=== PATIENT | female | born 1935 | race Caucasian/White ===

== ENCOUNTER → 2018-03-17 09:03 | Outpatient (CLI) | payer MEDICARE, OTHER, SELFPAY ==
[2018-03-17 15:41] LABS: ALB/GLOB Ratio 0.9 RATIO (0.9-2.4); AST(SGOT) 30 U/L (15-37); Alanine Aminotransfer ALT/SGPT 40 U/L (13-56); Albumin, Serum 3.5 g/dL (3.2-5.0); Alkaline Phosphatase 53 U/L (45-117); Anion Gap 12 (5-15); BUN 13 mg/dL (7-18); BUN/Creat Ratio 13.4 RATIO (10-20); Calcium,Total 8.5 mg/dL (8.5-10.1); Chloride 98 mmol/L (98-107); Creatinine, Serum 0.97 mg/dL (0.55-1.02); EST Glomerular Filtration Rate 59 mL/min (>60); Est Glom Filt Rate - Afr Amer 71 mL/min (>60); Globulin 4.1 g/dL (2.2-4.2); Glucose 178 mg/dL (74-106); Potassium 3.7 mmol/L (3.5-5.1); Protein, Total 7.6 g/dL (6.4-8.2); Sodium Level 133 mmol/L (136-145); Thyroid Stim Hormone (TSH) 0.95 uIU/mL (0.358-3.74)
[2018-03-17 15:48] LABS: Absolute Lymphocyte Count 1.14 X10^3/ul (0.83-4.51); Absolute Neutrophil Count 4.2 X10^3/uL (2.0-7.7); Basophil# 0.03 X10^3/uL; Basophil% 0.5 % (0-1); Eosinophil# 0.08 X10^3/uL; Eosinophils% 1.4 % (0-5); Lymphocyte # 1.14 X10^3/ul (4.0); Lymphocyte % 19.3 % (19-41); Mean Corp Hgb Conc 33.3 g/gl (32-36); Mean Corpuscular Hgb 30.8 pg (27.0-32.0); Mean Corpuscular Volume 92.3 fL (81-99); Mean Platelet Vol. 11.3 fl (6.2-12.0); Monocyte# 0.43 X10^3/uL; Monocyte% 7.3 % (0-10); Neutrophil # 4.23 X10^3/uL (2.7-7.7); Neutrophil % 71.3 % (47-70); Platelet Count 267 K/mm3 (150-450); RBC Distribution Width CV 14.2 % (11.6-14.6); RBC Distribution Width SD 47.1 fl (35.1-43.9); White Blood Count 5.9 K/mm3 (4.4-11.0)
[2018-03-17 15:53] LABS: POSITIVE COUNT NO; POSITIVE DIFFERENTIAL NO; POSITIVE MORPHOLOGY NO
[2018-03-18 08:40] LABS: Vitamin D,25 Hydroxy 31.9 ng/mL (29.95-100.01)
== END ==
PROVIDERS: Family Provider Family Medicine Geriatric Medicine; PCP Family Medicine Geriatric Medicine; Visit Provider Family Medicine Geriatric Medicine
DX: E11.9 Type 2 diabetes mellitus without complications (principal); E55.9 Vitamin D deficiency, unspecified; I10 Essential (primary) hypertension
CPT/HCPCS: 36415; 80053; 82306; 84443; 85025

== ENCOUNTER → 2018-04-08 10:23 | Outpatient (CLI) | payer MEDICARE, OTHER, SELFPAY | PROVIDERS: Family Provider Family Medicine Geriatric Medicine; PCP Family Medicine Geriatric Medicine; Visit Provider Nurse Practitioner Adult Health | DX: R10.30 Lower abdominal pain, unspecified (principal) | CPT/HCPCS: 87077; 87086; 87088; 87186 ==

== ENCOUNTER → 2018-06-28 12:10 | Outpatient (CLI) | payer MEDICARE, OTHER, SELFPAY | PROVIDERS: Family Provider Family Medicine Geriatric Medicine; PCP Family Medicine Geriatric Medicine; Visit Provider Nurse Practitioner | DX: Z12.31 Encounter for screening mammogram for malignant neoplasm of breast (principal); Z78.0 Asymptomatic menopausal state | CPT/HCPCS: 77063; 77067; 77080 ==

== ENCOUNTER → 2018-08-02 14:25 | Outpatient (CLI) | payer MEDICARE, OTHER, SELFPAY ==
[2018-08-08 11:05] LABS: Anti-Parietal Cell AB, QN < 1.0 Units (0.0-20.0); Intrinsic Factor Ab 0.9 AU/mL (0.0-1.1)
== END ==
PROVIDERS: Family Provider Nurse Practitioner; PCP Nurse Practitioner; Visit Provider Internal Medicine Gastroenterology
DX: E53.8 Deficiency of other specified B group vitamins (principal)
CPT/HCPCS: 36415; 83516; 86340

== ENCOUNTER → 2018-09-07 11:24 | Outpatient (CLI) | payer MEDICARE, OTHER, SELFPAY | PROVIDERS: Family Provider Nurse Practitioner; PCP Nurse Practitioner; Referring Provider Urology; Visit Provider Urology | DX: R30.0 Dysuria (principal) | CPT/HCPCS: 87077; 87086; 87088; 87186 ==

== ENCOUNTER → 2018-11-22 17:10 | Outpatient (CLI) | payer MEDICARE, OTHER, SELFPAY ==
[2018-11-22 17:10] VITALS: BMI 33.5
== END ==
PROVIDERS: Family Provider Nurse Practitioner; PCP Nurse Practitioner; Referring Provider Nurse Practitioner Adult Health; Visit Provider Nurse Practitioner Adult Health
DX: N30.90 Cystitis, unspecified without hematuria (principal); R35.1 Nocturia
CPT/HCPCS: 87086; 87088; 87186

== ENCOUNTER → 2019-01-03 12:55 | Outpatient (CLI) | payer MEDICARE, OTHER, SELFPAY ==
[2018-12-26 11:25] VITALS: BMI 31.1
--- NOTE | 2019-01-03 12:58 | CDU_ITS ---
Reason For Study: Carotid Bruit Rt. Velocities/BP Lt. Velocities/BP Prox CCA 83.3/11.7 cm/sec. Prox CCA 95.6/14.1 cm/sec. Mid CCA 101/18.8 cm/sec. Mid CCA 80.3/14.7 cm/sec. Dist CCA 95.6/15.2 cm/sec. Dist CCA 89.7/15.8 cm/sec. Prox ICA 54.6/15.7 cm/sec. Prox ICA 79.7/17 cm/sec. Mid ICA 98.5/27 cm/sec. Mid ICA 143/34.4 cm/sec. Dist ICA 119/25.9 cm/sec. Dist ICA 129/23.7 cm/sec. Rt. ICA/CCA = 1.24. Lt. ICA/CCA = 1.59. Prox ECA 100/9.38 cm/sec. Prox ECA 72.7 cm/sec. Rt. Vert. 70.9/11.7 cm/sec. Lt. Vert. 35/7.62 cm/sec. Right Extracranial There is intimal thickening but no significant atherosclerotic plaque noted in the right common carotid artery. There is heterogeneous, smooth atherosclerotic plaque noted in the right internal carotid artery. There is heterogeneous, smooth atherosclerotic plaque noted in the right external carotid artery. Antegrade flow is noted in the right vertebral artery. Left Extracranial There is intimal thickening but no significant atherosclerotic plaque noted in the left common carotid artery. There is homogeneous, smooth atherosclerotic plaque noted in the left internal carotid artery. There is intimal thickening but no significant atherosclerotic plaque noted in the left external carotid artery. The left external carotid artery is not well visualized. Antegrade flow is noted in the left vertebral artery. Procedure Carotid Duplex [id number]. Exam performed in department. Interpretation Summary Mild (<50%) stenosis right extracranial internal carotid. Moderate (50-69%) stenosis left extracranial internal carotid. Flow within the vertebral arteries is antegrade bilaterally. Ordering Physician: Unique Plunkett Referring Physician: Juanita Parisi Performed By: Tootie Muniz RVT and Student
== END ==
PROVIDERS: Family Provider Nurse Practitioner; PCP Nurse Practitioner; Referring Provider Physician Assistant Medical; Visit Provider Physician Assistant Medical
DX: R09.89 Other specified symptoms and signs involving the circulatory and respiratory systems (principal)
CPT/HCPCS: 93880

== ENCOUNTER → 2019-02-22 15:59 | Outpatient (CLI) | payer MEDICARE, OTHER, SELFPAY ==
[2018-12-26 11:25] VITALS: BMI 31.1
--- NOTE | 2019-02-22 16:04 | RAD_ITS ---
STUDY: X-RAY CHEST REASON FOR EXAM: Female, 83 years old. Preoperative evaluation. TECHNIQUE: PA and lateral views of the chest. COMPARISON: Comparison is made with prior study dated September 02, 2012. FINDINGS: Elevation of the anterior aspect of the right hemidiaphragm. Increased interstitial markings in both lungs suggestive of scarring. Normal size heart. Normal mediastinum and roberto. Normal visualized pulmonary arteries. There is atherosclerotic calcification of the aortic arch with tortuosity. There are diffuse degenerative changes of the visualized thoracic spine. Normal visualized ribs, clavicles, and shoulders. There is no demonstrated abnormality of the visualized soft tissue structures of the upper abdomen. RAD/Chest PA and Lateral IMPRESSION: Stable examination. Mild chronic interstitial scarring. Electronically Signed: Peter Shen, at 15:05 EDT , Service support ,
== END ==
PROVIDERS: Family Provider Nurse Practitioner; PCP Nurse Practitioner; Referring Provider Nurse Practitioner; Visit Provider Nurse Practitioner
DX: Z01.818 Encounter for other preprocedural examination (principal)
CPT/HCPCS: 71046

== ENCOUNTER → 2019-08-01 15:00 | Outpatient (CLI) | payer MEDICARE, OTHER, SELFPAY ==
[2019-06-07 13:50] VITALS: BMI 31.6
--- NOTE | 2019-08-01 15:02 | BI_ITS ---
MAMMOGRAPHY - BILATERAL SCREENING REASON FOR EXAM: Female, 84 years old. Routine annual screening examination. PERTINENT HISTORY: Non-contributory. TECHNIQUE: Digital bilateral breast renee (3D mammographic acquisition) in the CC and MLO projections. 2-D mediolateral oblique (MLO) and craniocaudad (CC) views of both breasts were obtained. CAD: Full Field Digital Mammography with Computer Added Detection was performed. COMPARISON: Comparison is made with prior examination dated June 28, 2018 and February 12, 2016. FINDINGS: Breast Composition: The breasts are almost entirely fatty. There are no dominant masses or suspicious calcifications. No other significant abnormalities are identified. There has been no significant change since the prior study. BI/SCREEN MAMM (CAD) W/RENEE BILAT IMPRESSION: Stable bilateral screening mammogram. Yearly follow-up mammogram recommended. (A) ASSESSMENT CATEGORY: BIRADS Category 1: Negative. A letter regarding these results will be sent to the patient by the facility within 30 days. Approximately 10% of breast cancers are not detected by mammography. A normal mammogram should not delay biopsy of a clinically suspicious abnormality. [id number] Electronically Signed: Peter Shen, at 8:46 EDT , Service support ,
== END ==
PROVIDERS: Family Provider Nurse Practitioner; PCP Nurse Practitioner; Referring Provider Nurse Practitioner; Visit Provider Nurse Practitioner
DX: Z12.31 Encounter for screening mammogram for malignant neoplasm of breast (principal)
CPT/HCPCS: 77063; 77067

== ENCOUNTER → 2019-11-14 10:31 | Outpatient (CLI) | payer MEDICARE, OTHER, SELFPAY ==
[2019-06-07 13:50] VITALS: BMI 31.6
[2019-11-09 14:30] LABS: BUN 10 mg/dL (7-18); Creatinine, Serum 0.89 mg/dL (0.55-1.02); EST Glomerular Filtration Rate 64 mL/min (>60); Est Glom Filt Rate - Afr Amer 78 mL/min (>60)
--- NOTE | 2019-11-14 10:35 | MRI_ITS ---
HISTORY:spinal stenosis, neurogenic claudication L3-4,L4-5,L5-S1; ddd; BACK PAIN, LEFT HIP PAIN spinal stenosis, neurogenic claudication L3-4,L4-5,L5-S1; ddd; BACK PAIN, LEFT HIP PAIN EXAMINATION: MR Spine Lumbar WO/W Contrast TECHNIQUE: Sagittal T1 and T2 and STIR and axial T1 and T2-weighted images were obtained. The patient was administered 16 cc of gentamicin intravenously and postcontrast fat-suppressed T1-weighted sagittal and axial images were obtained COMPARISON: August 04, 2012 FINDINGS: There is artifact it is seen to the lumbar spine on the postcontrast sagittal images that limits the study VERTEBRAE: Vertebral body heights are preserved. Normal vertebral bodies and posterior elements. VERTEBRAL ALIGNMENT: No spondylolisthesis. There is preservation of the normal lumbar lordosis. CORD: Normal position and signal intensity of the conus medullaris. At T11-12 there is again noted a subligamentous disc extrusion is unchanged from prior study. This is only seen on the sagittal view. This does efface the ventral thecal sac. T12-L1: No significant disc contour abnormality or canal stenosis. No neural foraminal narrowing. This is only seen on the sagittal view L1/L2: Normal disc height and morphology. Normal spinal canal, lateral recesses and neuroforamina. L2/L3: Minimal disc desiccation. Minimal annular bulge. No canal stenosis or neuroforaminal narrowing Minimal anterior spondylolisthesis unchanged from prior study. L3/L4: Slightly decreased hydration of the disc. Minimal annular bulge. No significant neural foraminal narrowing or canal stenosis L4/L5: Minimal retrolisthesis of L4 on L5 with posterior osteophytes and a diffuse annular bulge. Decreased disc height and hydration This extends into the bilateral neural foramina but greater on the left. There is moderate bilateral neuroforaminal narrowing. No significant nerve impingement. There is enhancement of the endplates seen at this level. L5/S1: Minimal retrolisthesis of L5 on S1 with posterior osteophytes and a diffuse annular bulge. Mild right and moderate left neuroforaminal narrowing. Effacement of the left L5 nerve root as it exits the foramen to the prior study. SOFT TISSUES: Enhancement of the soft tissues posterior to the lumbar spine. There are postsurgical changes seen at the level of L3-4 L4-5 and L5-S1 with laminectomy defects. Enhancing granulation tissue is present. MRI/Spine Lumbar W/WO Contrast IMPRESSION: Postsurgical changes with laminectomy defects at the level of L3-L4 and L5 with associated granulation tissue. T11-12 there is a subligamentous disc extrusion unchanged from prior study L2-3 minimal annular bulge but no significant canal stenosis or neural foraminal narrowing L4-5 retrolisthesis. Posterior osteophytes and diffuse annular bulge. Decreased disc height and hydration. Anterior bulge is also noted. No significant nerve impingement. Enhancement of the endplates seen at the study. The artifact extends through the lumbar spine in this region on the sagittal view L5-S1 there is minimal retrolisthesis with posterior osteophytes had a diffuse annular bulge. Effacement of the left L5 nerve root as it exits the foramen at 0406 Reported and signed by: Marisa Galvan DO Electronically Signed: Marisa Galvan DO at 4:05 EST Tel , Service support ,
== END ==
PROVIDERS: Family Provider Nurse Practitioner; PCP Nurse Practitioner; Referring Provider Orthopaedic Surgery Orthopaedic Surgery of the Spine; Visit Provider Orthopaedic Surgery Orthopaedic Surgery of the Spine
DX: M51.36 Other intervertebral disc degeneration, lumbar region (principal); M48.062 Spinal stenosis, lumbar region with neurogenic claudication
CPT/HCPCS: 36415; 72158; 82565; 84520; A9575

== ENCOUNTER 2020-09-02 10:51 | Day surgery (SDC) | payer MEDICARE, OTHER, SELFPAY ==
[2020-06-26 13:04] VITALS: BMI 32.8
[2020-09-02 11:20] VITALS: BP 164/77; PULSE 94; RESP 16; TEMP 37; O2SAT 99; BMI 32.4
[2020-09-02] MEDS: Lactated Ringers 1,000 ML 100 ML IV ×2 (11:38→15:05)
[2020-09-02 11:55] LABS: Bedside Glucose 145 mg/dL (70-110)
[2020-09-02] MEDS: Cefazolin 2 GM in 0.9% Normal Saline 100 ML IV (12:52)
--- NOTE | 2020-09-02 12:55 | RAD_ITS ---
PROCEDURE: Spinal cord stimulator insertion. DATE OF EXAMINATION: 09/02/2020. INDICATION: Female, 85 years old. Back pain. FLUOROSCOPY TIME (if supplied): (3 minutes and 40 seconds) minutes/seconds. 6 intraoperative images were obtained. Intraoperative imaging provided for spinal cord stimulator insertion. The tips of the spinal cord stimulator are at the T7-T8 level. RAD/Lumbar Spine 2 or 3 Views IMPRESSION: Imaging provided for spinal cord stimulator placement. The tips of the stimulator hardware at the T7 and T8 vertebral level. Electronically Signed: Peter Shen, at 14:42 EDT , Service support ,
[2020-09-02] MEDS: Bupivacaine 0.25% 30 ML Vial ×2 (14:25→14:26)
[2020-09-02] MEDS: Bacitracin 500 UNITS/GM PACKET (14:26)
[2020-09-02 14:36] VITALS: BP 124/59; BP 164/77; PULSE 74; O2SAT 95
[2020-09-02 14:40] VITALS: PULSE 78; RESP 16
[2020-09-02 15:50] VITALS: BP 144/72; BP 164/77; PULSE 83; RESP 16; TEMP 36.7; O2SAT 96
--- NOTE | 2020-09-02 16:53 | PCM.OPRPT ---
Report of Operation Date of Procedure: 09/02/20 Description of Surgical Findings:: Pre-Operative Diagnosis: Lumbosacral radiculopathy, lumbosacral degenerative disc disease, lumbosacral spinal stenosis, postlaminectomy syndrome of the lumbar spine Post-Operative Diagnosis: Lumbosacral radiculopathy, lumbosacral degenerative disc disease, lumbosacral spinal stenosis, postlaminectomy syndrome of the lumbar spine Surgery/Procedure Performed:: 1. Spinal cord stimulator thoracolumbar leads placement x2 #2 spinal cord stimulator Medtronic intellus generator placement #3 spinal cord stimulator generator pocket creation at the right gluteal region #4 spinal cord stimulator simple programming, 5-intraoperative fluoroscopic interpretation Description of Surgical Findings:: PROCEDURES: 1. Spinal cord stimulator thoracolumbar leads placement x2 #2 spinal cord stimulator Medtronic intellus generator placement #3 spinal cord stimulator generator pocket creation at the right gluteal region #4 spinal cord stimulator simple programming 5-intraoperative fluoroscopic interpretation PREOPERATIVE DIAGNOSES: Lumbosacral radiculopathy, lumbosacral degenerative disc disease, lumbosacral spinal stenosis, postlaminectomy syndrome of the lumbar spine POSTOPERATIVE DIAGNOSES: Lumbosacral radiculopathy, lumbosacral degenerative disc disease, lumbosacral spinal stenosis, postlaminectomy syndrome of the lumbar spine ANESTHESIA: MAC COMPLICATIONS: None BLOOD LOSS: Minimal <25 CC Implanted device: Spinal cord stimulator lead [id number] lot number [id number], lead #2 lot number [id number], Medtronic spinal cord stimulator generator intellus serial number [id number] PROCEDURE IN DETAIL: History and physical today was reviewed. Risks and benefits of procedure explained. The patient understood, agreed to procedure, informed consent was obtained. IV inserted per routine protocol. The patient was taken to the operating room, placed in the prone position with a pillow positioned underneath the abdomen. A 2 g of Ancef IV piggyback was infused per anesthesia. The lower back and left gluteal area was prepped and draped in a sterile fashion using iodine x3. The C-arm was brought in position for AP view at the L1-2 vertebral bodies under direct visualization fluoroscopy on a true AP view the L2-3 interlaminar space was identified skin and subcutaneous tissue and size approximately 10 cc of a mix of 2% lidocaine and 0.25% Marcaine using a 25-gauge regular needle followed by a 25-gauge 6 inch spinal needle towards the interlaminar space at T12-L1, the skin and subcutaneous tissue were then anesthetized and using an 11-gauge blade was then taken down to the skin and subcutaneous tissue using a 14-gauge 3.5 inch Touhy needle provided by the [employer] kit the needle was passed through the skin towards the interlaminar space at L1-2 and a paramedian approach the needle was then advanced under direct visualization fluoroscopy towards the interlaminar space at L1-2 lulf-it-[id number] technique was then carried to air towards the interlaminar space at L3-4 once the tip of the needle was in the epidural space and loss of resistance was encountered to air and after confirmation of AP as well as oblique view of the spinal cord stimulator lead was then advanced under direct visualization fluoroscopy to be at the tip of the lead at T8 and the bottom of the lead around mid T10 after confirmation of AP as well as lateral view to confirm correct placement of the lead in the posterior compartment of the epidural space the previous procedure was then repeated to a level above at 12 L1 interlaminar space the second lead was then inserted under direct visualization with fluoroscopy to be at the mid T8 and mid T11 area the leads were were then connected to the external neurostimulator and patient was then awakened to confirm satisfactory coverage of the painful area once satisfactory coverage was then achieved the stylette of each needle was then removed and the skin and subcutaneous tissue on to the left of the paramedian needles was then taken anesthetized with a total of 10 cc of the previous mixture of 0.25% Marcaine and 2% lidocaine using a 25-gauge regular needle the incision was then taken down through the skin and subcutaneous tissue towards the fascia making sure hemostasis was then maintained via cautery, the spinal cord stimulator leads were then passed through the above incision and secured using the bi-wing and sutured down with a 2-0 nylon to the fascia at that level the spinal cord stimulator leads were then tunneled via a tunneler provided by the [employer] kit towards the previously incised spinal cord stimulator battery at the right gluteal region skin and subcutaneous tissue were anesthetized with approximately 10 cc of a mix of 2% lidocaine and 0.25% Marcaine using a 25 gauge regular needle, skin and subcutaneous tissue was then taken down with the 11-gauge blade hemostasis was maintained with Bovie and direct pressure the incision was then taken down to the fascia and the battery was then secured with the 2-0 silk sutures that were the spinal cord stimulator leads the upper lead was then marked the new until spinal cord stimulator battery was then provided Via [employer] kit the battery was then reattached of the spinal cord stimulator make ensure that the top lead is attached to the top position from 0-7 electrodes and the bottom from 8-15 electrodes once impedance was then checked to be in the proper average number the intellus battery was then inserted into the pocket and impedance with when checked again the pocket was then inspected to confirm hemostasis in place, the intellus battery was then secured to the fascia using a 2-0 silk to the upper and lower eyes of the battery confirming an upward writing of the intellus facing posterior, once complete confirmation the battery was then placed in the position and the the mid paramedian and the gluteal incisions were then closed primarily through a 3-0 Vicryl in a interrupted fashion followed by a 4-0 chromic to the skin, hemostasis was then maintained during the procedure the skin was then covered with a Steri-Strips and bacitracin patient was then returned into the supine position in a stable condition and returned to recovery in a stable condition patient experienced no signs or symptoms of intrathecal or intravascular injection patient experienced no paresthesia the procedure was completed without any apparent difficulty any complication the patient appeared to tolerate well, motor as well as sensory exam was unchanged from prior to the procedure. ESTIMATED BLOOD LOSS: Minimal less than 25 mL ASSESSMENT AND PLAN: This is a 85-year-old female with lumbosacral radiculopathy lumbosacral degenerative disc disease lumbosacral spinal stenosis, postlaminectomy syndrome of the lumbar spine, status post 1. Spinal cord stimulator thoracolumbar leads placement x2 #2 spinal cord stimulator Medtronic intellus generator placement #3 spinal cord stimulator generator pocket creation at the right gluteal region #4 spinal cord stimulator simple programming, 5-intraoperative fluoroscopic interpretation patient will continue her current medications a prescription was provided to the patient for Keflex 500 mg 1 p.o. every 8 hours for 7 days, Grassflat 5-325 mg 1 p.o. every 4 hours as needed acute postoperative pain, postop instruction were given in writing to the patient as well as verbally and in writing to her . the patient will follow approximately 1 week for reevaluation.
== END 2020-09-02 15:55 | disposition home or self-care (01) ==
LOC: SDC 10:51 → AC 10:54
PROVIDERS: Anesthesiology; PCP Nurse Practitioner; Referring Provider Anesthesiology Pain Medicine; Visit Provider Anesthesiology Pain Medicine
PROC: (CPT 63685; principal; 2020-09-02 12:15)
DX: M96.1 Postlaminectomy syndrome, not elsewhere classified (principal); M51.17 Intervertebral disc disorders with radiculopathy, lumbosacral region; M48.07 Spinal stenosis, lumbosacral region; M47.27 Other spondylosis with radiculopathy, lumbosacral region; M46.96 Unspecified inflammatory spondylopathy, lumbar region; M47.814 Spondylosis without myelopathy or radiculopathy, thoracic region; I10 Essential (primary) hypertension; D50.9 Iron deficiency anemia, unspecified; K21.9 Gastro-esophageal reflux disease without esophagitis; E78.00 Pure hypercholesterolemia, unspecified; E11.40 Type 2 diabetes mellitus with diabetic neuropathy, unspecified; I48.91 Unspecified atrial fibrillation; E06.9 Thyroiditis, unspecified; M19.90 Unspecified osteoarthritis, unspecified site; Z78.0 Asymptomatic menopausal state; Z79.84 Long term (current) use of oral hypoglycemic drugs; Z79.01 Long term (current) use of anticoagulants; Z79.891 Long term (current) use of opiate analgesic; Z79.899 Other long term (current) drug therapy
CPT/HCPCS: 01992; 63650 ×2; 63685; 95971; 72100; 76000; 82962; 87635; C1778; C1820; C9803; J7120; U0003

== ENCOUNTER → 2020-09-26 13:32 | Outpatient (CLI) | payer MEDICARE, OTHER, SELFPAY ==
[2020-06-26 13:04] VITALS: BMI 32.8
[2020-09-02 11:20] VITALS: BMI 32.4
[2020-09-26 13:45] LABS: CREATININE FINGERSTICK < 0.6 mg/dL (0.55-1.02); EGFR FINGERSTICK > 60.0000 mL/min (>60)
--- NOTE | 2020-09-26 13:47 | CT_ITS ---
STUDY: CT ABDOMEN WITH CONTRAST REASON FOR EXAM: Female, 85 years old. LIVER FIBROSIS FOLLOW UP RADIATION DOSAGE (If Supplied By Facility): CTDIvol = ( 13.90 ) mGy, DLP = ( 572.63 ) mGycm TECHNIQUE: Transaxial images were obtained post I.V. administration of Oral and amp; IV READII-CAT and amp; 100ML ISOVUE 300, and with oral contrast. Sagittal and coronal images were reconstructed. Individualized dose optimization techniques were used for this CT. COMPARISON: None. FINDINGS: Mild degree of scarring at both lung bases. Coronary artery calcification. There is hepatomegaly with diffuse hepatic enlargement. Hepatomegaly. Normal gallbladder and extrahepatic biliary system. Normal spleen. Normal pancreas. Normal bilateral adrenal glands. Normal right kidney. Normal left kidney. Normal visualized stomach. Normal small intestine. Normal colon. The appendix is visualized and appears normal. There is diffuse atherosclerotic calcification of the abdominal aorta, without a demonstrated aneurysm. Normal inferior vena cava. Normal retroperitoneum. Normal abdominal wall. Disc space narrowing and disc degeneration at the L4-L5 and L5-S1 levels. CT/Abdomen WITH IV Contrast IMPRESSION: Hepatomegaly and fatty infiltration of the liver. Electronically Signed: Peter Shen, at 14:26 EST , Service support ,
== END ==
PROVIDERS: PCP Nurse Practitioner; Referring Provider Internal Medicine Gastroenterology; Visit Provider Internal Medicine Gastroenterology
DX: K74.00 Hepatic fibrosis, unspecified (principal); K75.4 Autoimmune hepatitis
CPT/HCPCS: 74160; Q9967

== ENCOUNTER → 2020-10-18 14:33 | Outpatient (CLI) | payer MEDICARE, OTHER, SELFPAY ==
[2020-06-26 13:04] VITALS: BMI 32.8
--- NOTE | 2020-10-18 14:35 | BI_ITS ---
MAMMOGRAPHY - BILATERAL SCREENING REASON FOR EXAM: Female, 85 years old. Routine annual screening examination. PERTINENT HISTORY: Non-contributory. TECHNIQUE: Digital bilateral breast renee (3D mammographic acquisition) in the CC and MLO projections. 2-D mediolateral oblique (MLO) and craniocaudad (CC) views of both breasts were obtained. CAD: Full Field Digital Mammography with Computer Added Detection was performed. COMPARISON: Comparison is made with prior study dated 08/01/2019 and 06/28/2018. FINDINGS: Breast Composition: The breasts are almost entirely fatty. There are no dominant masses or suspicious calcifications. Stable small benign-appearing bilateral axillary lymph nodes. No other significant abnormalities are identified. There has been no significant change since the prior study. BI/SCREEN MAMM (CAD) W/RENEE BILAT IMPRESSION: Stable bilateral screening mammogram. Yearly follow-up mammogram recommended. (A) ASSESSMENT CATEGORY: BIRADS Category 2: Benign. A letter regarding these results will be sent to the patient by the facility within 30 days. Approximately 10% of breast cancers are not detected by mammography. A normal mammogram should not delay biopsy of a clinically suspicious abnormality. [id number] Electronically Signed: Peter Shen, at 15:18 EST , Service support ,
== END ==
PROVIDERS: PCP Nurse Practitioner; Referring Provider Nurse Practitioner; Visit Provider Nurse Practitioner
DX: Z12.31 Encounter for screening mammogram for malignant neoplasm of breast (principal)
CPT/HCPCS: 77063; 77067

== ENCOUNTER → 2021-03-26 13:25 | Outpatient (CLI) | payer MEDICARE, OTHER, SELFPAY ==
[2021-03-14 11:05] VITALS: BMI 33.5
--- NOTE | 2021-03-26 13:29 | ECHOCS_ITS ---
Reason For Study: Murmur Procedure This was a 2D Doppler, Color Flow transthoracic echocardiogram. The study was technically difficult. Contrast injection was performed. Exam performed in department. Left Ventricle Normal LV size. Left ventricular systolic function is normal. The estimated ejection fraction is 70 %. There is evidence of diastolic dysfunction. No regional wall motion abnormalities noted. Right Ventricle Normal RV size. Normal systolic function. Atria Normal left atrium. Normal right atrium. No doppler evidence for ASD. Mitral Valve There is moderate mitral annular calcification. Extension of the mitral annular calcification onto the base of the posterior mitral valve leaflet. Trivial mitral valve insufficiency. Tricuspid Valve Normal tricuspid valve. Mild tricuspid valve insufficiency. Right ventricular systolic pressure estimated to be 34 mmHg. Aortic Valve Trisinus/trileaflet aortic valve. Moderate diffuse aortic valve thickening. Moderate focal aortic valve calcification. Mild aortic stenosis. Pulmonic Valve The pulmonic valve is not well visualized. Great Vessels The aortic root is not well visualized. Pericardium/Pleural No pericardial effusion. Medication 22 gauge I.V. with prn adaptor inserted into left arm. Diluted definity 2ml given slow IV push to enhance endocardial definition. MMode/2D Measurements & Calculations LVIDd: 3.6 cm IVSd: 1.1 cm LVOT diam: 2.0 cm LVIDs: 2.3 cm LVPWd: 0.87 cm RVDd: 3.3 cm FS: 37.6 % LVOT area: 3.3 cm2 LA dimension: 3.8 cm LAV(MOD-bp): 64.3 ml LA A4 area: 19.8 cm2 LAV(MOD-bp) Indexed: 34.1 ml/m2 LAV(MOD-sp2): 73.8 ml LAV(MOD-sp4): 53.9 ml RA A4 area: 13.9 cm2 Time Measurements MV dec time: 0.26 sec Doppler Measurements & Calculations MV E max colby: 98.7 cm/sec Lat Peak E' Colby: 5.1 cm/sec Med Peak E' Colby: 6.3 cm/sec MV A max colby: 139.1 cm/sec E/E' lat: 19.4 E/E' med: 15.6 MV E/A: 0.71 MV V2 max: 172.4 cm/sec MV P1/2t max colby: 119.4 cm/sec Ao V2 max: 251.4 cm/sec MV max P.9 mmHg MV P1/2t: 73.4 msec Ao max P.3 mmHg MV V2 mean: 98.9 cm/sec MV dec slope: 476.6 cm/sec2 Ao V2 mean: 170.6 cm/sec MV mean P.6 mmHg Ao mean P.3 mmHg MV V2 VTI: 33.7 cm MVA(P1/2t): 3.0 cm2 Ao V2 VTI: 48.0 cm MVA(VTI): 2.7 cm2 NIKOS(I,D): 1.9 cm2 NIKOS(V,D): 1.7 cm2 LV V1 max: 127.2 cm/sec SV(LVOT): 91.3 ml PA V2 max: 116.5 cm/sec LV V1 max P.5 mmHg LV V1 mean P.5 mmHg LV V1 mean: 87.5 cm/sec LV V1 VTI: 27.9 cm TR max colby: 279.9 cm/sec TR max P.4 mmHg ECHO/Echo Complete W/ Contrast Interpretation Summary The study was technically difficult. Contrast injection was performed. Left ventricular systolic function is normal. The estimated ejection fraction is 70 %. There is moderate mitral annular calcification. Extension of the mitral annular calcification onto the base of the posterior mi tral valve leaflet. Trivial mitral valve insufficiency. Mild tricuspid valve insufficiency. Mild aortic stenosis. Right ventricular systolic pressure estimated to be 34 mmHg. There is evidence of diastolic dysfunction. Ordering Physician: Grupo Galvin Referring Physician: Juanita Parisi Performed By: Angel Moreno RCS
== END ==
PROVIDERS: PCP Nurse Practitioner; Referring Provider Internal Medicine Cardiovascular Disease; Visit Provider Internal Medicine Cardiovascular Disease
DX: I34.0 Nonrheumatic mitral (valve) insufficiency (principal)
CPT/HCPCS: 93306; Q9957; A4216; C8929

== ENCOUNTER → 2021-08-20 15:39 | Outpatient (CLI) | payer MEDICARE, OTHER, SELFPAY ==
[2021-08-22 16:10] LABS: Endomysial Antibody IgA Negative (Negative)
[2021-08-22 16:51] LABS: Immunoglobulin A 179 mg/dL (64-422); t-Transglutaminase IgA <2 U/mL (0-3)
== END ==
PROVIDERS: PCP Nurse Practitioner; Referring Provider Internal Medicine Gastroenterology; Visit Provider Internal Medicine Gastroenterology
DX: R19.7 Diarrhea, unspecified (principal)
CPT/HCPCS: 36415; 82784; 83516; 86140; 86255

== ENCOUNTER → 2021-10-24 12:34 | Outpatient (CLI) | payer MEDICARE, OTHER, SELFPAY ==
--- NOTE | 2021-10-24 12:35 | BI_ITS ---
MAMMOGRAPHY - BILATERAL SCREENING REASON FOR EXAM: Female, 86 years old. Routine annual screening examination. PERTINENT HISTORY: Non-contributory. TECHNIQUE: Digital bilateral breast renee (3D mammographic acquisition) in the CC and MLO projections. 2-D mediolateral oblique (MLO) and craniocaudad (CC) views of both breasts were obtained. CAD: Full Field Digital Mammography with Computer Added Detection was performed. COMPARISON: Comparison is made with prior study dated 10/18/2020 and 08/01/2019. FINDINGS: Breast Composition: The breasts are almost entirely fatty. There are no dominant masses or suspicious calcifications. Stable small benign-appearing bilateral axillary No other significant abnormalities are identified. There has been no significant change since the prior study. BI/SCRN MAMM (CAD)W/RENEE BILAT IMPRESSION: Stable bilateral screening mammogram. Yearly follow-up mammogram recommended. (A) ASSESSMENT CATEGORY: BIRADS Category 2: Benign. A letter regarding these results will be sent to the patient by the facility within 30 days. Approximately 10% of breast cancers are not detected by mammography. A normal mammogram should not delay biopsy of a clinically suspicious abnormality. [id number] Electronically Signed: Peter Shen MD at 13:21 EST , Service support ,
== END ==
PROVIDERS: PCP Nurse Practitioner; Visit Provider Nurse Practitioner
DX: Z12.31 Encounter for screening mammogram for malignant neoplasm of breast (principal)
CPT/HCPCS: 77063; 77067

== ENCOUNTER → 2022-11-04 | Outpatient (CLI) | payer MEDICARE, OTHER, SELFPAY ==
--- NOTE | 2022-11-04 10:36 | BI_ITS ---
MAMMOGRAPHY - BILATERAL SCREENING REASON FOR EXAM: Female, 87 years old. Routine annual screening examination. PERTINENT HISTORY: Non-contributory. TECHNIQUE: Digital bilateral breast renee (3D mammographic acquisition) in the CC and MLO projections. 2-D mediolateral oblique (MLO) and craniocaudad (CC) views of both breasts were obtained. CAD: Full Field Digital Mammography with Computer Added Detection was performed. COMPARISON: Comparison is made with prior study 10/24/2021 and 10/18/2020. FINDINGS: Breast Composition: The breasts are almost entirely fatty. There are no dominant masses or suspicious calcifications. Stable small benign-appearing bilateral axillary lymph nodes. No other significant abnormalities are identified. There has been no significant change since the prior study. BI/SCRN MAMM (CAD)W/RENEE BILAT IMPRESSION: Stable bilateral screening mammogram. Yearly follow-up mammogram recommended. (A) ASSESSMENT CATEGORY: BIRADS Category 2: Benign. A letter regarding these results will be sent to the patient by the facility within 30 days. Approximately 10% of breast cancers are not detected by mammography. A normal mammogram should not delay biopsy of a clinically suspicious abnormality. [id number] Electronically Signed: Peter Shen MD at 12:26 EST ,
--- NOTE | 2022-11-04 11:00 | BD_ITS ---
STUDY: DUAL ENERGY X-RAY ABSORPTIOMETRY / DXA REASON FOR EXAM: Female, 87 years old. [id number] TECHNIQUE: Bone Mineral Density (BMD) measurements of lumbar spine and left hip were obtained. COMPARISON: Comparison is made with prior examination of 06/28/2018. FINDINGS: Lumbar Spine (L1-L4): g/cm2 (1.018) / T-score (0.0) / Z-score (2.8) Findings are suggestive of normal bone density with a low fracture risk. Left Femur Total: g/cm2 (0.862) / T-score (-0.7) / Z-score (1.7) Left Femoral Neck: g/cm2 (0.716) / T-score (-1.2) / Z-score (1.3) The T-Scores on the most recent prior examination were: Lumbar Spine (L1-L4): There has been worsening of bone density since the previous examination. Left Femur Total: which represents a worsening of 1%. BD/Dexa Bone Density Study IMPRESSION: The patient is considered osteopenic as outlined below according to World Kvng Organization (WHO) criteria with a low fracture risk. There has been worsening of bone density since the previous examination. Reference Information: The T-score is the number of standard deviations above or below the standard which is normal for young adults at their peak bone mineral density. The World Health Organization (WHO) interprets the T-scores as follows: Above -1 Normal bone density Between -1 and -2.5 Osteopenia Equal to / or below -2.5 Osteoporosis As a practical clinical guideline, osteopenia may be graded as follows: Mild -1 through -1.5 Moderate -1.6 through -2.0 Severe -2.1 through -2.4 The Z-score is the number of standard deviations above or below age-matched controls. A Z-score of less than -1.5 would be considered abnormal. References: 1. NIH Osteoporosis and Related Bone Diseases www osteo.org 2. International Society for Clinical Densitometry www iscd.org 3. National Osteoporosis Foundation www nof.org Electronically Signed: Peter Shen MD at 9:37 EST ,
== END | disposition home or self-care (01) ==
LOC: OPBD 10:32
PROVIDERS: PCP Nurse Practitioner Family; Visit Provider Nurse Practitioner Family
DX: Z12.31 Encounter for screening mammogram for malignant neoplasm of breast (principal); M85.80 Other specified disorders of bone density and structure, unspecified site; Z78.0 Asymptomatic menopausal state; V49.81XA Car occupant (driver) (passenger) injured in transport accident with military vehicle, initial encounter
CPT/HCPCS: 77063; 77067; 77080

== ENCOUNTER → 2023-02-04 | Outpatient (CLI) | payer MEDICARE, OTHER, SELFPAY ==
--- NOTE | 2023-02-04 13:47 | CDU_ITS ---
Reason For Study: Carotid Stenosis Rt. Velocities/BP Lt. Velocities/BP Prox CCA 88.8/13.9 cm/sec. Prox CCA 101.4/15.5 cm/sec. Mid CCA 76.5/13.8 cm/sec. Mid CCA 79.6/12.1 cm/sec. Dist CCA 92.8/16.7 cm/sec. Dist CCA 84.2/17.1 cm/sec. Prox ICA 85.5/16.7 cm/sec. Prox ICA 103.4/17.5 cm/sec. Mid ICA 61.0/11.0 cm/sec. Mid ICA 85.1/19.4 cm/sec. Dist ICA 68.8/11.7 cm/sec. Dist ICA 168.2/27.7 cm/sec. Rt. ICA/CCA = 1.1. Lt. ICA/CCA = 2.1. Prox ECA 108.3/7.9 cm/sec. Prox ECA 97.4/7.3 cm/sec. Rt. Vert. 60.0/9.5 cm/sec. Lt. Vert. 55.5/11.9 cm/sec. Right Extracranial There is intimal thickening but no significant atherosclerotic plaque noted in the right common carotid artery. There is heterogeneous, irregular atherosclerotic plaque noted in the right internal carotid artery. There is heterogeneous, irregular atherosclerotic plaque noted in the right external carotid artery. Antegrade flow is noted in the right vertebral artery. Left Extracranial There is heterogeneous, irregular atherosclerotic plaque noted in the left common carotid artery. There is heterogeneous, irregular atherosclerotic plaque noted in the left internal carotid artery. There is intimal thickening but no significant atherosclerotic plaque noted in the left external carotid artery. The left external carotid artery is not well visualized. The left external carotid artery is tortuous. Procedure Carotid Duplex [id number]. This is a Carotid Duplex examination using B-mode, color flow and specral Doppler. The exam was diagnostic. Exam performed in department. VL/Carotid Duplex Ultrasound Interpretation Summary Irregular calcific plaque at the proximal right internal carotid artery with le ss than 50% stenosis Less than 50% stenosis right external carotid artery Irregular calcific plaque with shadowing at the proximal left internal carotid artery with less than 50% stenosis. There is elevation of velocity in the distal left internal carotid artery to 16 8 cm/s peak systolic flow in an area of tortuosity. This would potentially be consistent with 50 to 69% stenosis. Patent and antegrade vertebral arteries bilaterally No significant change from a previous examination of January 03, 2019 Ordering Physician: Faby Live Referring Physician: Concetta Santo Performed By: Gilbert Wills RVT
== END | disposition home or self-care (01) ==
LOC: CVS 13:46
PROVIDERS: PCP Nurse Practitioner Family; Visit Provider Nurse Practitioner Gerontology
DX: I65.22 Occlusion and stenosis of left carotid artery (principal)
CPT/HCPCS: 93880

== ENCOUNTER → 2023-02-09 | Outpatient (CLI) | payer MEDICARE, OTHER, SELFPAY ==
[2023-02-09 15:38] LABS: Hematocrit 35.8 % (37-47); Mean Corp Hgb Conc 30.7 g/dL (32-36); Mean Corpuscular Hgb 29.8 pg (27.0-32.0); Mean Platelet Vol. 9.9 fl (6.2-12.0); Platelet Count 296 K/mm3 (150-450); RBC Distribution Width CV 15.3 % (11.6-14.6); RBC Distribution Width SD 54.5 fl (35.1-43.9); Red Blood Count 3.69 M/mm3 (4.2-5.4); White Blood Count 5.4 K/mm3 (4.4-11.0)
[2023-02-09 16:12] LABS: Erythrocyte Sedimentation Rate 13 mm/hr (0-30)
[2023-02-09 16:30] LABS: AST(SGOT) 13 U/L (15-37); Alanine Aminotransfer ALT/SGPT 17 U/L (13-56); Albumin, Serum 3.3 g/dL (3.2-5.0); Alkaline Phosphatase 41 U/L (45-117); Bilirubin, Direct 0.11 mg/dL (0.00-0.30); Globulin 3.5 g/dL (2.2-4.2); Protein, Total 6.8 g/dL (6.4-8.2)
== END | disposition home or self-care (01) ==
LOC: MTLAB 14:15
PROVIDERS: PCP Nurse Practitioner Family; Referring Provider Internal Medicine Gastroenterology; Visit Provider Internal Medicine Gastroenterology
DX: B17.9 Acute viral hepatitis, unspecified (principal)
CPT/HCPCS: 36415; 80076; 85027; 85652

== ENCOUNTER → 2023-02-19 | Outpatient (CLI) | payer MEDICARE, OTHER, SELFPAY ==
--- NOTE | 2023-02-19 09:39 | US_ITS ---
STUDY: ABDOMINAL ULTRASOUND - RIGHT UPPER QUADRANT REASON FOR VISIT: Female, 87 years old HEPATITIS TECHNIQUE: Ultrasound evaluation of the right upper quadrant was performed with real-time and static guadarrama-scale imaging. TECHNICAL QUALITY: Adequate. COMPARISON: None. FINDINGS: Liver: The liver measures 13.3 cm. There is increased echogenicity consistent with fatty infiltration. The bile ducts are within normal limits. There is hepatic color flow. The direction of portal flow is hepatopetal. There is no demonstrated mass lesion. Gallbladder: Normal distended gallbladder. The gallbladder wall measures 2.0 mm. There is a negative sonographic Mark''s sign. There is no pericholecystic fluid. There are no gallstones. Common Bile Duct (C.B.D.): The common bile duct measures 4.0 mm. Pancreas: Normal size of the head, body and tail of the pancreas. There is normal echogenicity of the pancreas. There is no demonstrated pancreatic mass or cyst. Right Kidney: Normal size of the right kidney. The right kidney measures 10.1 cm x 5.7 cm x 4.7 cm. Normal renal cortex. The right cortex measures 1.1 cm. There is no demonstrated renal mass or cyst. There is no right hydronephrosis. IMPRESSION: Fatty infiltration of the liver. Electronically Signed: Peter Shen MD at 15:14 EDT , STUDY: ABDOMINAL ULTRASOUND - ELASTOGRAPHY REASON FOR VISIT: Female, 87 years old. Autoimmune hepatitis. TECHNIQUE: Liver stiffness measurements were obtained on a RoomReveal 85 ultrasound machine using a CA 1-7 probe following the SRU guidelines. 3 measurements were obtained using a 2-D-SWE method. TheIQR/M was 22% suggesting a quality data set. TECHNICAL QUALITY: Adequate. COMPARISON: Comparison is made with prior study done earlier today. FINDINGS: Liver: Fatty infiltration of the liver. Median liver stiffness measured 9.2 kPa. Abdomen: There is no demonstrated mass lesion. US/ABD Limited w/ Elastography IMPRESSION: Liver stiffness measures 9.2 kPa compatible with F2-F3 (Mild to moderate liver fibrosis) Metavir score. Electronically Signed: Peter Shen MD at 15:15 EDT ,
== END | disposition home or self-care (01) ==
LOC: US 09:34
PROVIDERS: PCP Nurse Practitioner Family; Referring Provider Internal Medicine Gastroenterology; Visit Provider Internal Medicine Gastroenterology
DX: K75.4 Autoimmune hepatitis (principal)
CPT/HCPCS: 76705; 76981

== ENCOUNTER → 2023-09-06 | Outpatient (CLI) | payer MEDICARE, OTHER, SELFPAY ==
--- NOTE | 2023-09-06 11:55 | RAD_ITS ---
STUDY: X-RAY - LUMBAR SPINE REASON FOR EXAM: Female, 88 years old. Pain. TECHNIQUE: 3 view(s) of the lumbar spine were obtained. COMPARISON: Lumbar spine MRI dated October 2019. FINDINGS: Osteopenia. Normal lumbar lordosis. Bilateral rotatory levoscoliosis. Normal alignment of the vertebrae. Diffuse lower thoracic and lumbosacral facet sclerosis. Diffuse intervertebral disc space narrowing with osteophyte formation most marked at L3-4, L4-5 Vascular calcification. RAD/Lumbar Spine 2 or 3 Views IMPRESSION: Osteopenia with lower lumbosacral spondylosis as described. Electronically Signed: Tim Gunter MD at 14:32 EDT ,
--- NOTE | 2023-09-06 11:55 | RAD_ITS ---
STUDY: X-RAY - PELVIS REASON FOR EXAM: Female, 88 years old. Pain. TECHNIQUE: One view of the pelvis was obtained. COMPARISON: Pelvis and left hip x-rays dated August 23, 2017 FINDINGS: Normal bowel gas pattern. Osteopenia. Moderate arthrosis of the lower lumbosacral spine. Stable moderate arthrosis of the sacroiliac joints and symphysis pubis. Moderate arthrosis of both hips unchanged. Electronic device projected over the right ischium. RAD/Pelvis 1 or 2 Views IMPRESSION: Stable osteopenia with osteoarthritic changes as described. Electronically Signed: Tim Gunter MD at 14:42 EDT ,
== END | disposition home or self-care (01) ==
PROVIDERS: PCP Nurse Practitioner Family; Referring Provider Anesthesiology Pain Medicine; Visit Provider Anesthesiology Pain Medicine
DX: M47.817 Spondylosis without myelopathy or radiculopathy, lumbosacral region (principal); M85.80 Other specified disorders of bone density and structure, unspecified site
CPT/HCPCS: 72100; 72170

== ENCOUNTER → 2023-12-20 | Outpatient (CLI) | payer MEDICARE, OTHER, SELFPAY ==
--- NOTE | 2023-12-20 12:19 | BI_ITS ---
MAMMOGRAPHY - BILATERAL SCREENING REASON FOR EXAM: Female, 88 years old. Routine annual screening examination. PERTINENT HISTORY: Non-contributory. TECHNIQUE: Digital bilateral breast renee (3D mammographic acquisition) in the CC and MLO projections. 2-D mediolateral oblique (MLO) and craniocaudad (CC) views of both breasts were obtained. CAD: Full Field Digital Mammography with Computer Added Detection was performed. COMPARISON: Comparison is made with prior study dated November 04, 2022 and October 24, 2021. FINDINGS: Breast Composition: The breasts are almost entirely fatty. There are no dominant masses or suspicious calcifications. Stable small benign-appearing bilateral axillary lymph nodes. No other significant abnormalities are identified. There has been no significant change since the prior study. BI/SCRN MAMM (CAD)W/RENEE BILAT IMPRESSION: Stable bilateral screening mammogram. Yearly follow-up mammogram recommended. (A) ASSESSMENT CATEGORY: BIRADS Category 2: Benign. A letter regarding these results will be sent to the patient by the facility within 30 days. Approximately 10% of breast cancers are not detected by mammography. A normal mammogram should not delay biopsy of a clinically suspicious abnormality. [id number] Electronically Signed: Peter Shen MD at 12:52 EST ,
== END | disposition home or self-care (01) ==
LOC: OPBI 12:19
PROVIDERS: PCP Nurse Practitioner Family; Referring Provider Nurse Practitioner Family; Visit Provider Nurse Practitioner Family
DX: Z12.31 Encounter for screening mammogram for malignant neoplasm of breast (principal)
CPT/HCPCS: 77063; 77067

== ENCOUNTER → 2024-01-11 | Outpatient (CLI) | payer MEDICARE, OTHER, SELFPAY ==
[2024-01-11 18:06] LABS: Absolute Lymphocyte Count 1.63 X10^3/uL (0.83-4.51); Absolute Neutrophil Count 4.1 X10^3/uL (2.0-7.7); Basophil# 0.02 X10^3/uL; Basophil% 0.3 % (0-1); Eosinophil# 0.07 X10^3/uL; Eosinophils% 1.1 % (0-5); Hematocrit 34.7 % (37-47); Hemoglobin 10.8 g/dL (12.0-15.0); Lymphocyte # 1.63 X10^3/ul (0.83-4.51); Lymphocyte % 25.8 % (19-41); Mean Corp Hgb Conc 31.1 g/dL (32-36); Mean Corpuscular Hgb 29.5 pg (27.0-32.0); Mean Corpuscular Volume 94.8 fL (81-99); Mean Platelet Vol. 9.4 fl (6.2-12.0); Monocyte# 0.47 X10^3/uL; Monocyte% 7.4 % (0-10); NRBC Flagged by Analyzer 0 % (0-5); Neutrophil % 65.1 % (47-70); Platelet Count 350 K/mm3 (150-450); RBC Distribution Width SD 52.4 fl (35.1-43.9); Red Blood Count 3.66 M/mm3 (4.2-5.4); White Blood Count 6.3 K/mm3 (4.4-11.0)
[2024-01-11 18:27] LABS: Erythrocyte Sedimentation Rate 33 mm/hr (0-30)
[2024-01-11 18:56] LABS: ALB/GLOB Ratio 0.9 RATIO (0.9-2.4); AST(SGOT) 13 U/L (15-37); Alanine Aminotransfer ALT/SGPT 19 U/L (13-56); Albumin, Serum 3.5 g/dL (3.2-5.0); Alkaline Phosphatase 59 U/L (45-117); Anion Gap 9 (5-15); BUN 19 mg/dL (7-18); BUN/Creat Ratio 19.8 RATIO (10-20); CRP < 2.90 mg/L (0.0-3.0); Chloride 102 mmol/L (98-107); Creatinine, Serum 0.96 mg/dL (0.55-1.02); EST Glomerular Filtration Rate 59 mL/min (>60); Est Glom Filt Rate - Afr Amer 71 mL/min (>60); Glucose 180 mg/dL (74-106); Potassium 4.3 mmol/L (3.5-5.1); Protein, Total 7.5 g/dL (6.4-8.2); Rheumatoid Factor < 10.0 IU/mL (<15); Sodium Level 133 mmol/L (136-145)
[2024-01-11 19:52] LABS: Hepatitis B Surface Antibody Non-Reactive; Hepatitis B Surface Antigen Non-Reactive (Nonreactive); Hepatitis C Antibody Non-Reactive (Nonreactive)
[2024-01-13 13:08] LABS: ANTINUCLEAR ANTIBODIES DIRECT Positive (Negative); CCP IgG Antibodies 10 units (0-19)
== END | disposition home or self-care (01) ==
LOC: MTLAB 14:32
PROVIDERS: PCP Nurse Practitioner Family; Referring Provider Internal Medicine Rheumatology; Visit Provider Internal Medicine Rheumatology
DX: M06.4 Inflammatory polyarthropathy (principal); M47.897 Other spondylosis, lumbosacral region
CPT/HCPCS: 36415; 80053; 85025; 85652; 86038; 86140; 86200; 86431; 86706; 86803; 87340

== ENCOUNTER → 2024-02-07 | Outpatient (CLI) | payer MEDICARE, OTHER, SELFPAY ==
[2024-02-07 12:38] LABS: EXAGEN MAILED SPECIMEN
[2024-02-09 15:08] LABS: Anti-Mitochondrial AB <20.0 Units (0.0-20.0); Anti-Smooth Muscle ABS 4 Units (0-19)
== END | disposition home or self-care (01) ==
LOC: MTLAB 11:28
PROVIDERS: PCP Nurse Practitioner Family; Referring Provider Internal Medicine Rheumatology; Visit Provider Internal Medicine Rheumatology
DX: M06.4 Inflammatory polyarthropathy (principal); M47.897 Other spondylosis, lumbosacral region; R76.8 Other specified abnormal immunological findings in serum
CPT/HCPCS: 36415; 81002; 82570; 83516; 84156

== ENCOUNTER → 2024-02-09 | Outpatient (CLI) | payer MEDICARE, OTHER, SELFPAY ==
[2024-02-09 12:15] LABS: Color, Urine Yellow (Yellow); Glucose, Dipstick Normal (Normal); Ketone-Dipstick Negative (Negative); Leukocyte Esterase-Dipstick 500 /ul (Negative); Nitrite-Dipstick Negative (Negative); Occult Blood-Urine 10 /ul (Negative); Protein-Dipstick Negative (Negative); Specific Gravity, Urine 1.005 (1.002-1.030); Urine Bilirubin Dipstick Negative (Negative); Urine Clarity Sl. Cloudy (Clear); Urine Urobilinogen Normal (Normal)
[2024-02-09 14:12] LABS: Protein:Creat Ratio 370 mg/g CRE (0-200)
== END | disposition home or self-care (01) ==
LOC: LABSPEC 10:01
PROVIDERS: PCP Nurse Practitioner Family; Referring Provider Internal Medicine Rheumatology; Visit Provider Internal Medicine Rheumatology
DX: M06.4 Inflammatory polyarthropathy (principal); M47.897 Other spondylosis, lumbosacral region; R76.8 Other specified abnormal immunological findings in serum
CPT/HCPCS: 81002; 82570; 84156

== ENCOUNTER → 2024-03-13 | Outpatient (CLI) | payer MEDICARE, OTHER, SELFPAY ==
--- NOTE | 2024-03-13 12:30 | ECHOD_ITS ---
Reason For Study: AORTIC STENOSIS Procedure This was a 2D Doppler, Color Flow transthoracic echocardiogram. Exam performed in department. Left Ventricle Normal LV size. The estimated ejection fraction is 70 %. Unable to assess diastolic dysfunction. No regional wall motion abnormalities noted. Right Ventricle Normal RV size. Normal systolic function. Atria The left atrium is mildly enlarged. Normal right atrium. No doppler evidence for ASD. Mitral Valve There is severe mitral annular calcification. There is no mitral valve stenosis. No mitral valve insufficiency. Tricuspid Valve There is no tricuspid stenosis. Trivial tricuspid valve insufficiency. Pulmonary artery systolic pressure is 35 mmHg. Aortic Valve Trisinus/trileaflet aortic valve. Severe aortic stenosis. No aortic valve insufficiency. Pulmonic Valve There is no pulmonic valvular stenosis. No pulmonic valve insufficiency. Great Vessels Normal aortic root. Pericardium/Pleural No pericardial effusion. MMode/2D Measurements & Calculations LVIDd: 3.3 cm IVSd: 1.3 cm LVOT diam: 2.0 cm LVIDs: 2.0 cm LVPWd: 1.0 cm LVOT area: 3.3 cm2 RVDd: 2.9 cm FS: 39.8 % Ao root diam: 3.4 cm LAV(MOD-bp): 71.0 ml LVAd ap4: 19.4 cm2 LAV(MOD-bp) Indexed: 38.2 ml/m2 LVLd ap4: 6.2 cm LAV(MOD-sp2): 80.1 ml EDV(MOD-sp4): 49.3 ml LAV(MOD-sp4): 58.3 ml EDV(sp4-el): 51.8 ml LVAs ap4: 10.1 cm2 LVLs ap4: 5.5 cm ESV(MOD-sp4): 16.2 ml ESV(sp4-el): 15.6 ml EF(MOD-sp4): 67.1 % EF(sp4-el): 69.8 % LVAd ap2: 19.2 cm2 SV(MOD-sp4): 33.1 ml SV(MOD-sp2): 34.3 ml LVLd ap2: 6.7 cm EDV(MOD-sp2): 45.5 ml EDV(sp2-el): 46.8 ml LVAs ap2: 8.2 cm2 LVLs ap2: 5.2 cm ESV(MOD-sp2): 11.2 ml ESV(sp2-el): 10.8 ml EF(MOD-sp2): 75.3 % SV(sp4-el): 36.1 ml LA dimension(2D): 3.7 cm LA A4 area: 21.3 cm2 RA A4 area: 12.0 cm2 TAPSE: 1.8 cm Doppler Measurements & Calculations MV A max colby: 141.7 cm/sec Lat Peak E' Colby: 8.1 cm/sec Med Peak E' Colby: 5.6 cm/sec Ao V2 max: 382.6 cm/sec LV V1 max: 109.9 cm/sec SV(LVOT): 80.7 ml Ao max P.1 mmHg LV V1 max P.8 mmHg Ao V2 mean: 294.4 cm/sec LV V1 mean P.0 mmHg Ao mean P.1 mmHg LV V1 mean: 82.3 cm/sec Ao V2 VTI: 74.4 cm LV V1 VTI: 24.7 cm AV (velocity ratio): 0.33 NIKOS(I,D): 1.1 cm2 NIKOS(V,D): 0.94 cm2 PA V2 max: 86.7 cm/sec TR max colby: 261.7 cm/sec PA max PG (full): 0.06 mmHg TR max P.4 mmHg ECHO/Echo Complete Interpretation Summary The estimated ejection fraction is 70 %. Unable to assess diastolic dysfunction. The left atrium is mildly enlarged. Severe aortic stenosis. Ordering Physician: Tyrone Head Referring Physician: Tyrone Head MD Performed By: Portia Andrews RDCS
== END | disposition home or self-care (01) ==
PROVIDERS: PCP Nurse Practitioner Family; Referring Provider Internal Medicine Cardiovascular Disease; Visit Provider Internal Medicine Cardiovascular Disease
DX: I35.0 Nonrheumatic aortic (valve) stenosis (principal)
CPT/HCPCS: 93306

== ENCOUNTER 2024-04-17 07:00 | Day surgery (SDC) | payer MEDICARE, OTHER, SELFPAY ==
--- NOTE | 2024-03-21 15:05 | RAD_ITS ---
INDICATION: aortic valve stenosis -- for heart cath EXAMINATION/TECHNIQUE: X-RAY - XR Chest 2 Views COMPARISON: FINDINGS: LINES/DEVICES: None. LUNGS: No consolidation, edema or effusion. Mild interstitial prominence. No pneumothorax. MEDIASTINUM AND CARDIOVASCULAR STRUCTURES: Cardiac silhouette not enlarged. Central airways and mediastinal contour are unremarkable. BONES AND SOFT TISSUES: Unremarkable. RAD/Chest PA and Lateral IMPRESSION: Interstitial prominence. Electronically Signed: Jese Duarte DO at 23:13 EDT ,
[2024-03-21 15:34] LABS: ALB/GLOB Ratio 0.9 RATIO (0.9-2.4); AST(SGOT) 14 U/L (15-37); Alanine Aminotransfer ALT/SGPT 16 U/L (13-56); Albumin, Serum 3.3 g/dL (3.2-5.0); Alkaline Phosphatase 51 U/L (45-117); Anion Gap 8 (5-15); BUN 14 mg/dL (7-18); BUN/Creat Ratio 17.6 RATIO (10-20); Calcium,Total 8.8 mg/dL (8.5-10.1); Chloride 103 mmol/L (98-107); EST Glomerular Filtration Rate 73 mL/min (>60); Est Glom Filt Rate - Afr Amer 88 mL/min (>60); Globulin 3.7 g/dL (2.2-4.2); Glucose 208 mg/dL (74-106); Potassium 4.1 mmol/L (3.5-5.1); Sodium Level 134 mmol/L (136-145)
--- NOTE | 2024-04-13 16:04 | PCM.HP.BLA ---
History and Physical Date of Admission: 04/17/24 Patient is a 89-year-old white female that lives with her . Her is essentially wheelchair-bound and she is his primary caregiver. The patient reports that she is doing fairly well in her home environment she has been recently diagnosed with lupus. 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 She has also been previously treated for autoimmune hepatitis. Patient carries a history of paroxysmal atrial fibrillation but recent EKG she is in normal sinus rhythm with a first-degree AV block. She also carries a history of peripheral vascular disease with a left internal carotid artery 50 to 69% stenosis on ultrasound January 2023. The patient denies any syncope or near syncope she denies any shortness of breath she does report some occasional dyspnea on exertion especially when she is carrying a trash out. She denies any anginal type symptoms. She does have some bilateral lower extremity edema that seems to be slightly more prominent on the right than the left. 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 Accompanied by: Self Is patient in pain?: No Allergies Sulfa (Sulfonamide Antibiotics) Allergy (Unknown, Verified 02/15/24 13:04) unknown metoprolol Adverse Reaction (Severe, Verified 02/15/24 13:04) chest pain simvastatin [From Zocor] Adverse Reaction (Severe, Verified 02/15/24 13:04) myalgia scilostazol [From Pletal] Adverse Reaction (Intermediate, Verified 02/15/24 13:04) myalgias oxycodone [From Percocet] Adverse Reaction (Intermediate, Verified 02/15/24 13:04) Nausea, diarrhea aspartame Adverse Reaction (Unknown, Verified 02/15/24 13:04) unknown codeine Adverse Reaction (Unknown, Verified 02/15/24 13:04) unknown Medications See EMR Ejection fraction %: 65 to 70 [facility] Medical History CREST (calcinosis, Raynaud's phenomenon, esophageal dysfunction, sclerodactyly, telangiectasia) Diabetes mellitus, type II Essential hypertension Hyperlipidemia Nonrheumatic mitral (valve) insufficiency Nonrheumatic tricuspid (valve) insufficiency Paroxysmal atrial fibrillation Premature atrial contractions Premature ventricular contractions Surgical History History of back surgery History of electrophysiologic study History of left heart catheterization Family History Father CVA (cerebral vascular accident) HypertensionMother CAD (coronary artery disease) Myocardial infarction Hypertension CancerBrother , Age 66 CAD (coronary artery disease) S/P CABG x 4Sister Hyperlipidemia Social History Smoking Status: Never smoker alcohol intake: never substance use type: does not use caffeine: Yes Type: tea Number of servings: 1 ROS Const Const: Negative for fatigue, weakness, headache(s), frequent falls, difficulty sleeping or excessive sweating Eyes Eyes: Negative for loss of peripheral vision, transient loss of vision, blurry vision, double vision or tunnel vision ENT ENT: Negative for headache(s), dizziness, Nosebleed/epistaxis or balance problems Cardio Chest Pain: No Palpitations: No Edema: Bilateral Muscle aches with walking: None Resp Respiratory: Negative for SOB with activity, SOB at rest, SOB orthopnea\SOB lying down, Cough or paroxysmal nocturnal dyspnea GI GI: Negative nausea, vomiting, heartburn or black,tarry stools : Negative for hematuria Musc Musc: Positive for joint pain (lupus); Negative for muscle aches/ myalgia, muscle weakness or balance problems Skin Skin: Negative non-healing lesions, rash or unusual bruising Neuro Neuro: Negative for dizziness, lightheadedness, near syncope, syncope, frequent falls, headache(s), weakness, blurry vision, double vision or lack of coordination Everardo Hematologic/Lymphatic: Negative for easy bleeding or easy bruising Endo Endo: Negative for fatigue, excessive sweating or increased thirst/drinking Psych Psych: Negative for anxiety or depression Allergy Allergy/Immunology: Negative for hives and Negative for rash Cardiology Exam Const Appearance: cooperative and comfortable Nutritional Appearance: overweight Head Head: normal to inspection Eyes General: appearance normal, both eyes and all related structures Neck Neck: no JVD Carotids: Negative bruit Murmur radiates to the neck bilaterally Chest Chest inspection: normal inspection of the chest Auscultation: Bilateral: Clear to Auscultation Cardio Rate: regular rate Rhythm: regular rhythm Heart sounds: S1 normal, S2 normal and murmur; Negative rub or gallop Murmur: Grade 3/6 and holosystolic Harsh murmur radiating widely throughout the precordium, to the back, and to both carotids. GI GI: normal to inspection and bowel sounds present Neuro General: patient alert and patient oriented x3 Skin Skin: no rashes or lesions noted Extremities Lower Extremity Edema: +1: Left (Nonpitting edema) and +2: Right (Nonpitting edema) Psych Psychological: normal affect Supplemental Info Supplemental Information Echocardiogram from 03/13/2024: Interpretation Summary The estimated ejection fraction is 70 %. Unable to assess diastolic dysfunction. The left atrium is mildly enlarged. Severe aortic stenosis. Carotid Duplex Ultrasound 02/04/2023 Interpretation Summary Irregular calcific plaque at the proximal right internal carotid artery with less than 50% stenosis Less than 50% stenosis right external carotid artery Irregular calcific plaque with shadowing at the proximal left internal carotid artery with less than 50% stenosis. There is elevation of velocity in the distal left internal carotid artery to 168 cm/s peak systolic flow in an area of tortuosity. This would potentially be consistent with 50 to 69% stenosis. Patent and antegrade vertebral arteries bilaterally No significant change from a previous examination of January 03, 2019 Cardiac Catheterization 03/03/2005 Final impressions 1.? Elevated left ventricular end-diastolic pressure.? Pre-and post angiographic dye load potentially compatible with decreased diastolic compliance. 2.? Left ventricle: Normal left ventricle size, wall motion, and systolic function with an estimated LVEF of 65 to 70%. 4.? Left main: Angiographically normal. 5.? LAD: Angiography normal. 6.? LCx: Proximal to mid 0 to 10% minimal luminal irregularities. 7.? RCA: Angiographically normal. Assessment and Plan Assessment and Plan (1) Aortic valve stenosis, acquired: Status: Acute Comment: She had an echocardiogram completed on 03/13/2024 that showed ejection fraction 70% with severe aortic valve stenosis with a peak aortic valve gradient of 59.1 mmHg, mean aortic valve gradient of 38.1 mmHg, and aortic valve area 1.1/0.94 cm?. She will proceed with heart catheterization to assess coronary artery anatomy. This will guide valvular workup further. (2) Carotid stenosis, left: Status: Acute Comment: The patient should be continued on aggressive secondary risk factor modifications. She has no TIA or CVA type symptoms she has a loud murmur radiating into both sides of her neck. Should she need further treatment for her valvular heart disease repeat carotid ultrasound would be indicated. Plan: 1. Consider repeat carotid ultrasound within the next year. (3) Paroxysmal atrial fibrillation: Status: Chronic Comment: The patient remains in normal sinus rhythm on her EKG. Will continue current medical therapy including oral anticoagulation though placed on hold for heart catheterization. She is on the appropriate dose of Eliquis 5 mg twice daily renal function is within normal limits she is over 60 kg. Plan: 1. Continue current medical therapy. (4) Hyperlipidemia: Status: Chronic Qualifiers: Hyperlipidemia type: unspecified Qualified Code(s): E78.5 - Hyperlipidemia, unspecified Comment: Patient be continued on atorvastatin 40 mg daily. Plan: Further management per the primary service.
[2024-04-14 09:03] VITALS: BMI 33.1
[2024-04-14 12:28] LABS: Absolute Lymphocyte Count 1.08 X10^3/uL (0.83-4.51); Absolute Neutrophil Count 4.8 X10^3/uL (2.0-7.7); Basophil# 0.03 X10^3/uL; Basophil% 0.5 % (0-1); Eosinophil# 0.06 X10^3/uL; Eosinophils% 0.9 % (0-5); Hematocrit 32.4 % (37-47); Lymphocyte # 1.08 X10^3/ul (0.83-4.51); Lymphocyte % 16.7 % (19-41); Mean Corp Hgb Conc 30.9 g/dL (32-36); Mean Corpuscular Hgb 27.6 pg (27.0-32.0); Mean Corpuscular Volume 89.5 fL (81-99); Mean Platelet Vol. 9.7 fl (6.2-12.0); Monocyte# 0.43 X10^3/uL; Monocyte% 6.6 % (0-10); NRBC Flagged by Analyzer 0 % (0-5); Neutrophil # 4.84 X10^3/uL (2.7-7.7); Neutrophil % 74.8 % (47-70); Platelet Count 330 K/mm3 (150-450); RBC Distribution Width CV 15.9 % (11.6-14.6); RBC Distribution Width SD 51.9 fl (35.1-43.9); Red Blood Count 3.62 M/mm3 (4.2-5.4); White Blood Count 6.5 K/mm3 (4.4-11.0)
[2024-04-14 13:06] LABS: Anion Gap 8 (5-15); BUN 20 mg/dL (7-18); BUN/Creat Ratio 23.8 RATIO (10-20); Calcium,Total 9.1 mg/dL (8.5-10.1); Chloride 101 mmol/L (98-107); Creatinine, Serum 0.84 mg/dL (0.55-1.02); EST Glomerular Filtration Rate 68 mL/min (>60); Est Glom Filt Rate - Afr Amer 82 mL/min (>60); Estimated Creatinine Clearance 48.69 ml/min; Glucose 156 mg/dL (74-106); Potassium 4.6 mmol/L (3.5-5.1); Sodium Level 133 mmol/L (136-145)
--- NOTE | 2024-04-17 09:07 | CL.D_ITS ---
Patient Name: MILENA RAMIREZ Study Date: 04/17/2024 Performing: Dorian Guillen MD Ht: 63 inches 160.02 cm : 1935 Wt: 187 lbs 84.82 kg Age: 89 Gender: female BSA: 1.88 PROCEDURE(S) PERFORMED [id number]-([id number])[facility] CLINICAL PROFILE AND INDICATIONS Indications: Valvular Disease Heart Failure: None Stress/Imaging Stress/Image Study Performed: No CAD Presentations: Symptom unlikely to be ischemic. CONCLUSIONS Mild left circumflex artery stenosis. LAD and right coronary artery with no significant stenosis. Severe aortic stenosis. RECOMMENDATIONS Referred for consideration of TAVR. DESCRIPTION OF PROCEDURE The patient arrived to the procedure lab. The risks and benefits of the procedure as well as a full description of our services here and current unavailability of surgical backup were fully explained to the patient and/or their significant other prior to the catheterization. The Timeout was completed, verifying the correct patient and procedure. The patient's procedural site was prepped and draped in the usual fashion. Local anesthetic was given subcutaneously to right radial region with Lidocaine 2%. Using a modified Seldinger technique, arterial access was obtained via the right radial artery, a 6Fr sheath was inserted. Right Coronary Artery selective angiography was then performed in multiple views using a 5 Fr. 4.0 [place] catheter. Left Coronary Artery selective angiography was performed in multiple views using a 5 Fr. 4.0 [place] catheter.The arterial sheath was pulled and a TR Band was applied for hemostasis CORONARY ANGIOGRAPHY DOMINANCE: Right Dominant LEFT HEART ASSESSMENT Left Ventricular Ejection Fraction: by Echo 70 % Normal LV wall motion Normal Left Ventricular systolic function LEFT MAIN: Angiographically normal LEFT ANTERIOR DESCENDING ARTERY: Mild luminal irregularities CIRCUMFLEX ARTERY: Focal area in the mid circumflex artery with 40 to 50% stenosis RIGHT CORONARY ARTERY: No significant disease noted VALVE FINDINGS: Aortic Valve Stenosis - severe COMPLICATIONS No Complications PROCEDURE MEDICATIONS Versed 1 mg IV Fentanyl 50 mcg IV Heparin given IA 04/17/2024 08:32:07 Verapamil 2.5mg, 3000 units of Heparin given IA 04/17/2024 08:32:07 SUMMARY OF HEMODYNAMIC DATA Time AIR REST ECG 07:33:40 Art 182/69 (111) 08:42:47 AO 162/72 (112) SA 08:48:38 Signed By Dorian Guillen MD On 04/17/2024 09:07:19 Signed By Dorian Guillen MD On 04/17/2024 09:07:00 Dorian Guillen MD
== END 2024-04-17 10:55 | disposition home or self-care (01) ==
PROVIDERS: Internal Medicine Cardiovascular Disease; PCP Nurse Practitioner Family; Referring Provider Internal Medicine Cardiovascular Disease; Visit Provider Internal Medicine Cardiovascular Disease
DX: I25.10 Atherosclerotic heart disease of native coronary artery without angina pectoris (principal); I48.0 Paroxysmal atrial fibrillation; E11.9 Type 2 diabetes mellitus without complications; I65.22 Occlusion and stenosis of left carotid artery; E78.5 Hyperlipidemia, unspecified; I10 Essential (primary) hypertension; I35.0 Nonrheumatic aortic (valve) stenosis; Z79.01 Long term (current) use of anticoagulants; Z79.899 Other long term (current) drug therapy
CPT/HCPCS: 36415; 71046; 80048; 80053; 85025; 93454; 99152; 99153; J7040; Q9967; C1769; C1894

== ENCOUNTER → 2024-06-07 | Outpatient (CLI) | payer MEDICARE, OTHER, SELFPAY ==
[2024-06-07 15:25] LABS: Hematocrit 31.3 % (37-47); Hemoglobin 9.5 g/dL (12.0-15.0); Mean Corp Hgb Conc 30.4 g/dL (32-36); Mean Corpuscular Hgb 26.9 pg (27.0-32.0); Mean Corpuscular Volume 88.7 fL (81-99); Mean Platelet Vol. 9.6 fl (6.2-12.0); Platelet Count 333 K/mm3 (150-450); RBC Distribution Width CV 16.8 % (11.6-14.6); RBC Distribution Width SD 54.8 fl (35.1-43.9); Red Blood Count 3.53 M/mm3 (4.2-5.4); White Blood Count 4.8 K/mm3 (4.4-11.0)
[2024-06-07 15:50] LABS: Anion Gap 7 (5-15); BUN 15 mg/dL (7-18); BUN/Creat Ratio 16.3 RATIO (10-20); Chloride 101 mmol/L (98-107); Creatinine, Serum 0.92 mg/dL (0.55-1.02); EST Glomerular Filtration Rate 61 mL/min (>60); Est Glom Filt Rate - Afr Amer 74 mL/min (>60); Glucose 140 mg/dL (74-106); Potassium 4.7 mmol/L (3.5-5.1); Sodium Level 133 mmol/L (136-145)
[2024-06-07 15:58] LABS: Thyroid Stim Hormone (TSH) 1.69 uIU/mL (0.358-3.74)
== END | disposition home or self-care (01) ==
LOC: LAB 14:25
PROVIDERS: Nurse Practitioner Adult Health; PCP Nurse Practitioner Family; Visit Provider Nurse Practitioner Family
DX: E11.9 Type 2 diabetes mellitus without complications (principal); E03.9 Hypothyroidism, unspecified; D64.9 Anemia, unspecified; I35.0 Nonrheumatic aortic (valve) stenosis
CPT/HCPCS: 36415; 80048; 84443; 85027

== ENCOUNTER → 2024-06-09 | Outpatient (CLI) | payer MEDICARE, OTHER, SELFPAY ==
[2024-06-09 12:15] LABS: Microalbumin:Creatinine Ratio 26.3 mg/g CRE (<30 mg/g CRE)
== END | disposition home or self-care (01) ==
LOC: LAB 11:09
PROVIDERS: PCP Nurse Practitioner Family; Visit Provider Nurse Practitioner Family
DX: E11.9 Type 2 diabetes mellitus without complications (principal); E03.9 Hypothyroidism, unspecified; D64.9 Anemia, unspecified
CPT/HCPCS: 82043; 82570

== ENCOUNTER 2024-07-14 14:04 | Outpatient (RCR) | payer MEDICARE, OTHER, SELFPAY ==
[2024-07-14 16:07] LABS: Absolute Lymphocyte Count 1.74 X10^3/uL (0.83-4.51); Absolute Neutrophil Count 4.1 X10^3/uL (2.0-7.7); Basophil# 0.03 X10^3/uL; Basophil% 0.5 % (0-1); Eosinophil# 0.08 X10^3/uL; Eosinophils% 1.2 % (0-5); Hematocrit 31.9 % (37-47); Hemoglobin 9.5 g/dL (12.0-15.0); Lymphocyte # 1.74 X10^3/ul (0.83-4.51); Lymphocyte % 26.5 % (19-41); Mean Corp Hgb Conc 29.8 g/dL (32-36); Mean Corpuscular Hgb 26.5 pg (27.0-32.0); Mean Corpuscular Volume 88.9 fL (81-99); Monocyte# 0.57 X10^3/uL; Monocyte% 8.7 % (0-10); NRBC Flagged by Analyzer 0 % (0-5); Neutrophil # 4.12 X10^3/uL (2.7-7.7); Neutrophil % 62.8 % (47-70); Platelet Count 260 K/mm3 (150-450); RBC Distribution Width CV 16.6 % (11.6-14.6); RBC Distribution Width SD 53.8 fl (35.1-43.9); Red Blood Count 3.59 M/mm3 (4.2-5.4); White Blood Count 6.6 K/mm3 (4.4-11.0)
[2024-07-14 16:37] LABS: AST(SGOT) 16 U/L (15-37); Alanine Aminotransfer ALT/SGPT 14 U/L (13-56); Albumin, Serum 3.4 g/dL (3.2-5.0); Alkaline Phosphatase 56 U/L (45-117); Bilirubin, Direct 0.11 mg/dL (0.00-0.30); Globulin 4.1 g/dL (2.2-4.2); Protein, Total 7.5 g/dL (6.4-8.2)
== END 2024-07-14 18:00 | disposition home or self-care (01) ==
LOC: LAB 14:04
PROVIDERS: PCP Nurse Practitioner Family; Referring Provider Internal Medicine Gastroenterology; Visit Provider Internal Medicine Gastroenterology
DX: K75.4 Autoimmune hepatitis (principal)
CPT/HCPCS: 36415; 80076; 85025

== ENCOUNTER → 2024-10-27 | Outpatient (CLI) | payer MEDICARE, OTHER, SELFPAY | END | disposition home or self-care (01) | LOC: PSN 11:53 | PROVIDERS: PCP Nurse Practitioner Family; Referring Provider Internal Medicine Cardiovascular Disease; Visit Provider Internal Medicine Cardiovascular Disease | DX: I48.0 Paroxysmal atrial fibrillation (principal) | CPT/HCPCS: 93225; 93226 ==

== ENCOUNTER → 2025-03-21 | Outpatient (CLI) | payer MEDICARE, OTHER, SELFPAY ==
--- NOTE | 2025-03-21 13:44 | NEURO ---
NCS and/or EMG Patient Report Ordering Doctor: Kayla Hobbs DATE OF SERVICE: 03/21/25 Pearl presents with numbness and tingling in the right hand for the past several weeks. Electrodiagnostic findings: Right median motor nerve demonstrates prolonged latency with normal amplitude and reduced conduction velocity. Right ulnar motor response is within normal limits. Prolonged right median sensory latency at the wrist. Normal median and ulnar F?waves. Needle EMG testing was performed in the right upper limb. All muscles tested showed no evidence of denervation with normal motor unit action potentials. Electrodiagnostic impression: This is an abnormal study in the right upper limb. 1. Electrodiagnostic findings suggestive of right-sided median mononeuropathy. This consistent with a moderate right carpal tunnel syndrome. Multi Select Codes Neurology Neurology Interp Codes: 64902-09 Musc test done w/n test comp (interp) and 96866-29 Nrv cndj tst 5-6 studies (interp)
== END | disposition home or self-care (01) ==
PROVIDERS: PCP Nurse Practitioner Family; Referring Provider Physician Assistant Surgical; Visit Provider Physician Assistant Surgical
DX: G56.01 Carpal tunnel syndrome, right upper limb (principal); R20.2 Paresthesia of skin
CPT/HCPCS: 95886; 95909

== ENCOUNTER → 2025-03-29 | Outpatient (CLI) | payer MEDICARE, OTHER, SELFPAY ==
--- NOTE | 2025-03-29 15:03 | BI_ITS ---
EXAM: SCRN MAMM (CAD)W/RENEE BILAT DATE: 03/29/2025 CLINICAL HISTORY: F, Age 89 y/o , SCREENING No family history. BREAST CANCER RISK ASSESSMENT: Not assessed. TECHNIQUE: Bilateral screening digital breast tomosynthesis with 2D and 3D images. Computer aided detection. COMPARISON: Prior exam(s) dated December 20, 2023.. FINDINGS: TISSUE DENSITY: The breast tissue is almost entirely fatty. Bilateral Breast Mammographic Findings: No significant masses, calcifications or other abnormalities are identified. No suspicious masses, areas of developing architectural distortion, or suspicious calcifications. There has been no significant interval change. BI/SCRN MAMM (CAD)W/RENEE BILAT IMPRESSION: OVERALL FINAL ASSESSMENT: BIRADS 1 NEGATIVE RECOMMENDATION: Routine annual follow-up in 1 Year A letter with findings and recommendations will be mailed to the patient. Reading Location: [id number]
== END | disposition home or self-care (01) ==
LOC: OPBI 15:01
PROVIDERS: PCP Nurse Practitioner Family; Referring Provider Nurse Practitioner Family; Visit Provider Nurse Practitioner Family
DX: Z12.31 Encounter for screening mammogram for malignant neoplasm of breast (principal)
CPT/HCPCS: 77063; 77067

== ENCOUNTER → 2025-09-21 | Outpatient (CLI) | payer MEDICARE, OTHER, SELFPAY ==
[2025-09-21 16:02] LABS: Anion Gap 12 (5-15); BUN 15 mg/dL (4-19); BUN/Creat Ratio 19.2 RATIO (10-20); Calcium,Total 8.8 mg/dL (7.6-11.0); Carbon Dioxide 22.2 mmol/L (21.0-32.0); Chloride 94 mmol/L (98-108); Glucose 165 mg/dL (70-99); Potassium 3.9 mmol/L (3.3-5.1)
== END | disposition home or self-care (01) ==
LOC: LAB 14:43
PROVIDERS: PCP Nurse Practitioner Family; Referring Provider Internal Medicine Cardiovascular Disease; Visit Provider Internal Medicine Cardiovascular Disease
DX: I10 Essential (primary) hypertension (principal); I48.0 Paroxysmal atrial fibrillation
CPT/HCPCS: 36415; 80048

== ENCOUNTER → 2025-10-24 | Outpatient (CLI) | payer MEDICARE, OTHER, SELFPAY ==
--- NOTE | 2025-10-24 15:04 | RAD_ITS ---
PROCEDURE: CHEST PA AND LATERAL 10/24/2025 REASON FOR EXAM: PRE-OPERATIVE: DCCV TECHNIQUE: Procedure Code: RADCXR Modality: DX Procedure: CHEST PA AND LATERAL COMPARISON: Chest x-ray studies dated 03/21/2024 and 02/22/2019 FINDINGS: Hardware: A radiopaque stent is projected over the heart. This appears to represent an aortic valve stent. Clinically correlate. Heart: Heart size and configuration are within normal limits. Arteriosclerotic vascular disease of the aorta is noted. Mediastinum: Mediastinum is unremarkable. Lungs: Prominent interstitial markings are noted throughout both lungs. This is more pronounced in comparison to the prior study. There is no atelectasis, consolidation, effusion or pneumonic infiltrate. Bones: Bony demineralization of the thorax is noted. Spondylosis of the thoracic spine is noted. RAD/Chest PA and Lateral IMPRESSION: Prominent interstitial markings are noted throughout both lungs. This is more pronounced in comparison to the prior study. Reading Location: [id number]
[2025-10-24 16:13] LABS: Hematocrit 33.0 % (37-47); Hemoglobin 10.0 g/dL (12.0-15.0); Immature Granulocytes Count 0.030 X10^3/uL (0.0-0.0); Mean Corp Hgb Conc 30.3 g/dL (32-36); Mean Corpuscular Volume 88.7 fL (81-99); Mean Platelet Vol. 9.5 fl (6.2-12.0); NRBC Flagged by Analyzer 0 % (0-5); Platelet Count 268 K/mm3 (150-450); RBC Distribution Width CV 17.2 % (11.6-14.6); RBC Distribution Width SD 55.4 fl (35.1-43.9); Red Blood Count 3.72 M/mm3 (4.2-5.4); White Blood Count 5.6 K/mm3 (4.4-11.0)
[2025-10-24 16:57] LABS: Anion Gap 12 (5-15); BUN 15 mg/dL (4-19); BUN/Creat Ratio 19.9 RATIO (10-20); Calcium,Total 8.8 mg/dL (7.6-11.0); Carbon Dioxide 25.8 mmol/L (21.0-32.0); Chloride 91 mmol/L (98-108); Glucose 142 mg/dL (70-99); Potassium 4.2 mmol/L (3.3-5.1); Pro- Brain NATRIURETIC PEPTIDE 4247 pg/mL (<=1800)
== END | disposition home or self-care (01) ==
LOC: RAD 15:02
PROVIDERS: PCP Nurse Practitioner Family; Referring Provider Nurse Practitioner Family; Visit Provider Nurse Practitioner Family
DX: I25.10 Atherosclerotic heart disease of native coronary artery without angina pectoris (principal); I48.0 Paroxysmal atrial fibrillation; E11.9 Type 2 diabetes mellitus without complications; I35.0 Nonrheumatic aortic (valve) stenosis; I10 Essential (primary) hypertension; E78.5 Hyperlipidemia, unspecified; R06.09 Other forms of dyspnea
CPT/HCPCS: 36415; 71046; 80048; 83880; 85025